=== PATIENT | male | born 1970 | race Caucasian/White ===

== ENCOUNTER 2019-08-19 19:42 | Emergency (ER) | payer SELFPAY ==
[~2019-08-19] VITALS: Ht 170.2 cm; Wt 97.5 kg
--- NOTE | 2019-08-19 21:00 | Diagnostic Imaging Report ---
HIP LEFT 2-3 VW (+/- PELVIS) - Multiple views HISTORY: ^L hip pain COMPARISON: None available. FINDINGS: Bones: No acute displaced fracture. Osseous alignment is within normal limits. Joints: The joint spaces are well-maintained. There is no significant arthritic change. Soft tissues: The soft tissues appear unremarkable. IMPRESSION: No acute radiographic abnormality. Signed by: Luis Miguel Akers MD on 08/19/2019 8:57 PM
== END 2019-08-19 21:19 | disposition home or self-care (01) ==
LOC: ER 19:42
DX: M25.552 Pain in left hip (principal); K21.9 Gastro-esophageal reflux disease without esophagitis
CPT/HCPCS: 99283

== ENCOUNTER 2019-10-04 12:02 | Emergency (ER) | payer SELFPAY ==
[~2019-10-04] VITALS: Ht 170.2 cm; Wt 97.5 kg
[2019-10-04] MEDS ORDERED: HYDROCODONE/APAP 10MG-325MG TAB PO ONE (12:30)
--- NOTE | 2019-10-04 13:29 | Emergency Department Note ---
History of Present Illnes History of Present Illness Chief Complaint: General Medicine Complaints History of Present Illness This is a 48 year old male .Chief Complaint Comment HERE FOR FINGER INJURY TO LEFT THUMB AT HOME USING A MANDOLIN. Historian: Patient Arrival Mode: Car Onset (how long ago): day(s) (on set today ) Location: r thumb Onset quality: sudden Timing of current episode: constant Relieving factors: none Associated symptoms: denies other symptoms Treatments prior to arrival: none Past Medical/Family History Physician Review I have reviewed the patient's past medical and family history. Any updates have been documented here. Past Medical History Recent Fever: No Clinical Suspicion of Infectio: No New/Unexplained Change in Ment: No Past Medical History: CVA, GERD Other Medical History: Past Medical History CVA GERD Past Surgical History: None Last Tetanus UTD Past Surgical History: None Social History Alcohol Use: None Any Illegal Drug Use: No TB Exposure/Symptoms: No Physically hurt or threatened: No Family History Family history of heart diseas: No Other Last Tetanus: UTD Any Pre-Existing Lines (PICC,: No Is patient up to date on immun: No Review of Systems ROS Narrative 48 yr old m presented to ed c/o lac to LEFT thumb cut self while using mandolin Dr Veliz in eval pt status Review of Systems Constitutional: no symptoms EENTM: no symptoms Cardiovascular: no symptoms Respiratory: no symptoms Gastrointestinal: no symptoms Genitourinary: no symptoms Musculoskeletal: no symptoms Neurological: no symptoms Psychological: no symptoms Endocrine: no symptoms Hematological/Lymphatic: no symptoms Review of other systems All other systems reviewed and negative. Physical Exam Related Data Allergies: Coded Allergies: Penicillins (Verified Allergy, Intermediate, 08/19/19) Triage Vital Signs Vital Signs Date Time Temp Pulse Resp B/P (MAP) Pulse Ox O2 Delivery O2 Flow Rate FiO2 10/04/19 12:30 97.8 62 16 111/76 98 Vital signs reviewed: Yes Physical Exam CONSTITUTIONAL Constitutional: well-developed, well-nourished HENT HENT: normocephalic, atraumatic, oropharynx clear/moist, nose normal HENT L/R: left ext ear normal, right ext ear normal EYES Eyes: conjunctivae normal, EOM normal NECK Neck: ROM normal PULMONARY Pulmonary: effort normal, breath sounds normal CARDIOVASCULAR Cardiovascular: regular rhythm, heart sounds normal, capillary refill normal, normal rate GASTROINTESTINAL Abdominal: soft, nontender, bowel sounds normal GENITOURINARY Genitourinary: exam deferred SKIN Skin: warm, dry, other (noted skin avulsion r thumb pad lateral aspect no active bleeding ) MUSCULOSKELETAL Musculoskeletal: ROM normal NEUROLOGICAL Neurological: alert, oriented x 3, no gross motor or sensory deficits PSYCHOLOGICAL Psychological: mood/affect normal, judgement normal Procedures Laceration Laceration: Laceration 1 Site: other (Left thumb) Side: right Description: other (skin avulsion) Pre-repair: wound exposed, irrigated extensively Additional comments dermabond applied pt nneka well - care instructions given pt utd on tet tox Critical Care Time Subsequent provider I assumed direction of critical care for this patient from another provider of my specialty. Assessment & Plan Assessment & Plan Problems: (1) Laceration of left thumb without damage to nail Assessment & Plan 1. follow up with your doctor in 1-2 days without fail 2. return to ed as needed 3. tylneol and motrin as needed 4. rx keflex Depart Disposition: HOME, SELF-CARE Last Vital Signs Date Time Temp Pulse Resp B/P (MAP) Pulse Ox O2 Delivery O2 Flow Rate FiO2 10/04/19 12:30 97.8 62 16 111/76 18 Medications in the ED Acetaminophen/ Hydrocodone Bitart 1 ea ONCE ONCE PO Last administered on 10/04/19at 12:48; Admin Dose 1 EA; Start 10/04/19 at 12:30; Stop 10/04/19 at 12:31 Attestation Provider Attestation chart scribed for Dr Jose Alfredo Veliz in re eval pt status discussed plan of care and wound care instructions GRECIA CERRATO NP October 04, 2019 13:29
== END 2019-10-04 13:23 | disposition home or self-care (01) ==
LOC: ER 12:02
DX: S61.012A Laceration without foreign body of left thumb without damage to nail, initial encounter (principal); W45.8XXA Other foreign body or object entering through skin, initial encounter; K21.9 Gastro-esophageal reflux disease without esophagitis; Z86.73 Personal history of transient ischemic attack (TIA), and cerebral infarction without residual deficits
CPT/HCPCS: 99281